=== PATIENT | female | born 1940 | race Caucasian/White ===

== ENCOUNTER 2019-06-30 13:15 | Emergency (ER) | payer OTHER ==
[2019-06-30 13:37] VITALS: BP 140/76; PULSE 94; TEMP 97.7; BMI 33.4
--- NOTE | 2019-06-30 13:37 | PDOC ---
Rapid Medical Evaluation Chief Complaint: Vaginal Bleeding Time Seen by Provider: 06/30/19 13:34 Medical Evaluation: Allergies Allergy/AdvReac Type Severity Reaction Status Date / Time bee pollen Allergy Verified 11/15/15 10:28 No Known Drug Allergies Allergy Verified 11/15/15 10:28 shrimp Allergy severe Uncoded 11/15/15 10:28 diarrhea 06/30/19 13:34 I have performed a brief in-person evaluation of this patient. The patient presents with a chief complaint of:vag bleed x 3 days , sent from Dr Martel office - post hyst/ radiation/ chemo Pertinent physical exam findings: pale I have ordered the following: will wait for eval. The patient will proceed to the ED for further evaluation. Discharge Disposition - Diagnosis Vaginal bleeding - Referrals - Patient Instructions - Post Discharge Activity
--- NOTE | 2019-06-30 14:34 | PDOC ---
History of Present Illness - General Chief Complaint: Vaginal Bleeding Stated Complaint: Vaginal Bleeding Time Seen by Provider: 06/30/19 13:34 History Source: Patient, Care Provider Exam Limitations: No Limitations - History of Present Illness Initial Comments: 07/01/19 08:35 HPI: 79F PMH PE on AC, Breast Ca s/p lumpectomy, Endometrial Ca s/p hysterectomy and chemo-RT, urinary incontinence, iliostomy presenting with 3 days of vaginal bleeding soaking up to 8 pads in a day. Denies chest pain, palpitations, sob, abdpain, f/c, lightheadedness, dizziness. Past History - Past Medical History Allergies/Adverse Reactions: Allergies Allergy/AdvReac Type Severity Reaction Status Date / Time bee pollen Allergy Verified 06/30/19 13:37 No Known Drug Allergies Allergy Verified 06/30/19 13:37 codeine AdvReac Verified 06/30/19 13:37 shrimp Allergy severe Uncoded 06/30/19 13:37 diarrhea Home Medications: Ambulatory Orders Pantoprazole Sodium [Protonix -] 20 mg PO DAILY #30 tablet.ec 09/15/14 Nitrofurantoin Monohyd/M-Cryst [Macrobid -] 100 mg PO BID #14 capsule 09/23/14 Bupropion HCl [Wellbutrin Xl -] 150 mg PO DAILY 12/15/14 Cholecalciferol (Vitamin D3) [D3-2000] 2,000 unit PO DAILY 12/15/14 Lactobacillus Acidophilus [Bacid -] 1 each PO BID 12/15/14 Naproxen Sodium [Aleve] 220 mg PO TID 12/15/14 Oxycodone HCl/Acetaminophen [Percocet 5-325 mg Tablet] 1 tab PO HS 12/15/14 Zolpidem Tartrate [Ambien] 10 mg PO HS 12/15/14 Acetaminophen [Tylenol] 650 mg PO Q8H 11/14/15 Cyclosporine [Restasis] 1 each OP Q12H 11/14/15 Desloratadine [Clarinex] 5 mg PO PRN PRN 11/14/15 [place] Carbonate [Lithobid] 300 mg PO BID 11/14/15 Oxybutynin Chloride [Ditropan Xl] 5 mg PO HS 11/14/15 Ropinirole HCl [Requip] 0.25 mg PO BID 04/11/16 Tramadol HCl [Ultram] 50 mg PO PRN 11/14/15 Anemia: No Asthma: No Cancer: Yes (S/P BREAST CA; 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) Cardiac Disorders: No (2011 ENDOMETRIAL CA) CVA: No COPD: No CHF: No Dementia: No Diabetes: No GI Disorders: Yes (DIVERTICULOSIS) Disorders: Yes (ENDOMETRIAL RADIATION) HTN: No Hypercholesterolemia: No Liver Disease: No Seizures: No Thyroid Disease: No - Surgical History Abdominal Surgery: No (COLOSTOMY) Appendectomy: No Cardiac Surgery: No Cholecystectomy: No Lung Surgery: No Neurologic Surgery: No Orthopedic Surgery: No - Immunization History Immunization Up to Date: Yes - Psycho Social/Smoking Cessation Hx Smoking Status: No Smoking History: Never smoked Have you smoked in the past 12 months: No Number of Cigarettes Smoked Daily: 0 If you are a former smoker, when did you quit?: 40YRS AGO Hx Alcohol Use: Yes (SOCIALLY) Drug/Substance Use Hx: No Substance Use Type: None Hx Substance Use Treatment: No Review of Systems - Review of Systems Able to Perform ROS?: Yes Comments:: 07/01/19 08:35 ROS: CONSTITUTIONAL: Denies F / C HEENT: Denies headache, lightheadedness, dizziness, changes in vision / hearing RESP: Denies SOB, cough CARD: Denies chest pain, palpitations GI: Denies N / V / D, abdominal pain : Denies dysuria, frequency Is the patient limited Yakut proficient: No *Physical Exam - Vital Signs Last Vital Signs Temp Pulse Resp BP Pulse Ox 97.7 F 94 H 16 140/76 100 06/30/19 13:33 06/30/19 13:33 06/30/19 13:33 06/30/19 13:33 06/30/19 13:33 - Physical Exam Comments: 07/01/19 08:35 PE: GEN: NAD, pale, comfortable. AAOx3 HEENT: NC/AT. No facial asymmetry. Normal voice. Supple neck w/ FROM. CV: S1/S2, RRR, no m/r/g LUNG: CTAB, no wheezes, crackles, rales, rhonchi. GI: soft, ndnt, +BS, no guarding, no rebound. iliostomy bag present and draining well. PELVIC: anatomy is grossly varied from normal. There is atrophy of pelvic floor muscles. No active bleeding or discharge on inspection. Blind pouch, no cervix visualized. EXTREMITIES: 2+ distal pulses. No LE edema. No obvious deformities of all extremities. SKIN: warm, dry, normal turgor PSYCH: normal mood and affect, pleasant NEURO: Moving all extremities. Ambulates with normal gait w/ assistance of cane. ED Treatment Course - LABORATORY CBC & Chemistry Diagram: 06/30/19 15:12 06/30/19 15:12 Medical Decision Making - Medical Decision Making 06/30/19 14:32 MDM: 79F PMH endometrial ca s/p hysterectomy and chemo-rt c/o 3 days of vaginal bleeding which has stopped today. Pelvic exam shows no active bleeds or concerning findings. - CBC, CMP, T&S 06/30/19 16:14 Labs reviewed Hgb 9.4 Discussed pt and results w/ Dr. Martel - His last hgb on pt = 9.8; given non- emergent findings and approximately baseline hgb w/ no active bleeds, he is comfortable w/ pt being dc'd w/ OB f/u. Prefers Dr. Jitendra Walter. DC home w/ PCP f/u and [employer] f/u; return precautions Discharge - Discharge Information Problems reviewed: Yes Clinical Impression/Diagnosis: Vaginal bleeding Condition: Stable Disposition: HOME - Admission No - Follow up/Referral Referrals: Lamberto Martel MD [Primary Care Provider] - Jitendra Walter MD [Non Staff, Medical] - - Patient Discharge Instructions Patient Printed Discharge Instructions: DI for Vaginal Bleeding Additional Instructions: You were seen in the Emergency Department. Continue your home medications as prescribed. Restart your Eliquis but if you bleed again please contact Dr. Martel. Follow up with your Primary Care Doctor regarding this ED visit in the next 5-7 days. We are referring you to Dr. Jitendra Walter ([employer]) per Dr. Martel's recommendation. Please follow up with this [employer] in the next 3-5 days. The number to his office is provided below. IMMEDIATELY RETURN TO THE NEAREST EMERGENCY DEPARTMENT IF YOU EXPERIENCE ANY OF THE FOLLOWING: - Heavy bleeding (completely soaking 1 pad an hour for 2 consecutive hours) - Chest pain, shortness of breath, lightheadedness, dizziness - Severe abdominal pain - anything that concerns you - Post Discharge Activity
[2019-06-30 15:22] LABS: BASO % 0.5 % (0-2.0); EOS % 1.7 % (0-4.5); HEMATOCRIT 28.6 % (32.4-45.2); HEMOGLOBIN 9.4 GM/dL (10.7-15.3); LYMPH % 22.6 % (8-40); MCH 31.5 pg (25.7-33.7); MCHC 32.9 g/dl (32.0-36.0); MEAN CELL VOLUME 95.8 fl (80-96); MEAN PLT VOLUME 7.2 fl (7.5-11.1); MONO % 8.5 % (3.8-10.2); NEUT % 66.7 % (42.8-82.8); PLATELET COUNT 346 K/MM3 (134-434); RBC 2.99 M/mm3 (3.60-5.2); RDW 14.4 % (11.6-15.6); WHITE BLOOD COUNT 7.9 K/mm3 (4.0-10.0)
[2019-06-30 15:40] LABS: INR 1.11 (0.83-1.09); PROTHROMBIN TIME (PATIENT) 13.1 SEC (9.7-13.0)
[2019-06-30 15:43] LABS: ACTIVATED PTT 29.9 SECONDS (25.2-36.5)
[2019-06-30 15:54] LABS: ALBUMIN 3.6 g/dl (3.4-5.0); BILIRUBIN,TOTAL 0.2 mg/dL (0.2-1); BLOOD UREA NITROGEN 31.6 mg/dL (7-18); CALCIUM 9.8 mg/dL (8.5-10.1); CREATININE 1.5 mg/dL (0.55-1.3)
--- NOTE | 2019-06-30 15:55 | PDOC ---
Attending Attestation - Resident Resident Name: Lamberto Chang - ED Attending Attestation I have performed the following: I have examined & evaluated the patient, The case was reviewed & discussed with the resident, I agree w/resident's findings & plan - HPI HPI: 06/30/19 15:50 79y/o female history of endometrial CA status post hysterectomy 4 to 5 years ago presents now with painless vaginal bleeding for 3 days. Positive clots, changing pads every few hours, stopped bleeding last night. Presents today for evaluation, denies any lightheadedness or syncope, denies any chest pain, denies any fevers or chills. Her [facility] oncologist is currently in [place] and she has not followed up with him in about 1 year, she is followed primarily by Dr. Martel. - Physicial Exam PE: 06/30/19 15:53 vss, alert seated in chair in nad no jaundice/pallor heart regular, lungs clear abd soft/nt/nd. bs nl. no guarding/rebound. no cvat. no bruising/ecchymosis - Medical Decision Making 06/30/19 15:54 79-year-old female with history of endometrial CA status post hysterectomy with preservation of cervix but known cervical mets in the past presents now with painless vaginal bleeding for 3 days, not actively bleeding and hemodynamically stable with benign abdominal exam. Concern for recurrence of cervical CA, no other stigmata of bleeding. Check labs Pelvic exam per resident If hemoglobin within normal limits, will arrange for [facility]ULTANT oncology follow-up with Dr. Martel.
== END 2019-06-30 16:34 | disposition home or self-care (01) ==
LOC: JER 13:15
DX: N93.8 Other specified abnormal uterine and vaginal bleeding (principal); Z85.42 Personal history of malignant neoplasm of other parts of uterus; Z85.3 Personal history of malignant neoplasm of breast; Z85.820 Personal history of malignant melanoma of skin; Z92.3 Personal history of irradiation; Z87.19 Personal history of other diseases of the digestive system; Z90.710 Acquired absence of both cervix and uterus; Z88.5 Allergy status to narcotic agent; Z91.013 Allergy to seafood; Z91.048 Other nonmedicinal substance allergy status
CPT/HCPCS: 36415; 80053; 85025; 85610; 85730; 86850; 86900; 86901; 99281-25